=== PATIENT | male | born 1985 | race Hispanic/Latino ===

== ENCOUNTER 2022-03-10 20:04 | Emergency (ER) | payer OTHER ==
[~2022-03-10] VITALS: Ht 175.3 cm; Wt 54.0 kg
[2022-03-10] MEDS ORDERED: BUPRENORPHINE-1 EACH SL (20:31)
--- OUTSIDE RECORDS SUMMARY | 2022-03-10 22:14 | XMS ---
PreManage Notification: STEFAN DEAL [employer] Events No recent Security Events currently on file [facility] There are no care providers on record at this time. Meenakshi has no Care Guidelines for this patient. Shilpi VISIT COUNT (12 MO.) 1 SHERRY Guevara TOTAL 1 NOTE: Visits indicate total known visits. ED/UCC VISIT TRACKING (12 MO.) 03/10/2022 20:06 SHERRY [facility] [place] TYPE: Emergency COMPLAINT: - RT ARM LACERATION INPATIENT VISIT TRACKING (12 MO.) No inpatient visits to display in this time frame [email or web address]
== END 2022-03-10 21:10 | disposition home or self-care (01) ==
LOC: ED 20:04
DX: S51.811A Laceration without foreign body of right forearm, initial encounter (principal); W20.8XXA Other cause of strike by thrown, projected or falling object, initial encounter; Y99.0 Civilian activity done for income or pay; Z88.0 Allergy status to penicillin; Z23 Encounter for immunization
CPT/HCPCS: 90715